=== PATIENT | female | born 1990 | race Caucasian/White ===

== ENCOUNTER 2024-10-08 07:39 | Day surgery (SDC) | payer OTHER, SELFPAY ==
[2024-10-08] VITALS (19 sets, daily range): BP systolic 95–147; BP diastolic 56–107; PULSE 71–87; RESP 11–32; TEMP 36.1–36.6; O2SAT 91–100; BMI 39.8
--- NOTE | 2024-10-08 08:46 | W.ANESPRE ---
General Info Date of Service Date Performed: 10/08/24 Height: 5 ft 5 in Weight: 108.5 kg Body Mass Index (BMI): 39.8 Surgical Procedure: Operation Date: 10/08/24 09:40 Proposed Procedure Side Surgeon p Tonsillectomy & Possible Adenoidectomy Ramu Nam MD Meds Allergies and Home Medications Allergies Allergy/AdvReac Type Severity Reaction Status Date / Time Penicillins Allergy Severe Anaphylaxis Verified 10/04/24 12:57 Home Medication ?Medication ?Instructions ?Recorded albuterol sulfate 90 mcg/actuation 2 puff inhalation Q6H PRN 05/23/24 aerosol inhaler benzonatate 100 mg capsule 100 mg PO TID PRN 05/23/24 eszopiclone 1 mg tablet (Lunesta) 1 mg PO QHS PRN 05/23/24 ferrous sulfate 324 mg (65 mg 324 mg PO DAILY 05/23/24 iron) tablet,delayed release fluticasone furoate 100 1 inh inhalation DAILY 05/23/24 mcg-vilanterol 25 mcg/dose inhalation powder (Breo Ellipta) folic acid 0.8 mg capsule 0.4 mg PO DAILY 05/23/24 montelukast 10 mg tablet 10 mg PO DAILY 05/23/24 trazodone 50 mg tablet 50 mg PO QHS PRN 05/23/24 biotin 2,500 mcg capsule 2,500 mcg PO DAILY 06/12/24 cetirizine 10 mg capsule (Wal-Zyr 10 mg PO DAILY PRN 06/12/24 (cetirizine)) spironolactone 100 mg tablet 100 mg PO BID 09/26/24 magnesium 200 mg tablet 400 mg PO DAILY 10/04/24 Current Visit Medications: Current Medications Generic Name Dose Route Start Last Admin Trade Name Freq PRN Reason Stop Dose Admin Ringer's Solution 1,000 mls @ 100 mls/hr 10/08/24 06:00 IV 10/08/24 23:59 INFUSION LEVAR Tranexamic Acid/Sodium Chloride 1,000 mg in 100 mls @ 600 mls/hr 10/08/24 06:00 IVPB 10/08/24 23:59 PREOP LEVAR Clindamycin Phosphate/Dextrose 900 mg in 50 mls @ 50 mls/hr 10/08/24 06:00 Cleocin In D5w IVPB 10/08/24 23:59 PREOP LEVAR IV Miscellaneous Supplies 1 each 10/08/24 06:00 Iv Access IV 10/08/24 23:59 DIRECTED LEVAR Sodium Chloride 0 ml 10/08/24 06:00 Normal Saline Flush 10 Ml Syr IV 10/08/24 23:59 PRN PRN Sodium Chloride 0 ml 10/08/24 06:00 Normal Saline 10 Ml Vial IJ 10/08/24 23:59 DIRECTED PRN Sterile Water 0 ml 10/08/24 06:00 Water,Injection,Sterile 10 Ml Vial IJ 10/08/24 23:59 DIRECTED PRN PFSH Active Problems Active Problems: Problem Status Onset Code Chronic tonsillitis Acute J35.01 Recurrent tonsillitis Acute J03.91 Medical History Medical History Asthma History of respiratory system disease Severe obesity Prediabetes Morbid obesity Migraines Iron deficiency anemia Inactive tuberculosis High total serum IgA Surgical History Surgical History History of Tobacco Smoking/Tobacco Use Status: Never Alcohol Alcohol Intake: current Alcohol intake frequency: holidays/special occasions only Substance Use Substance use: Never Substance use type: does not use Vital Signs and Lab Results Vital Signs Most Recent Vital Signs in EMR: Most Recent Vital Signs Temp Pulse Resp BP Pulse Ox 36.2 C L 83 16 147/107 H 99 10/08/24 08:26 10/08/24 08:26 10/08/24 08:26 10/08/24 08:26 10/08/24 08:26 Point of Care Results Point of Care Results: POC- Test(urine) Negative 10/08/24 08:33 Lab Results Blood Type / Crossmatch: No Data to Display Complete Blood Count: No Data to Display Complete Metabolic Panel: No Data to Display Liver Function Panel: No Data to Display Coagulation Panel: No Data to Display Cardiac Panel: No Data to Display Arterial Blood Gas: No Data to Display Venous Blood Gas: No Data to Display Pancreas Panel: No Data to Display Thyroid Panel: No Data to Display Infectious Disease: No Data to Display Blood Cultures: No Data to Display Toxicology Panel: No Data to Display Panel: No Data to Display Anesthesia Assessment and Plan Anesthesia History Personal History: No History of Anesthesia Complications Family History: No Family History of Anesthesia Complications Exercise Tolerance Exercise Tolerance: Metabolic Equivalents>4 Pertinent Negatives Pertinent Negatives: No Symptoms of GERD Cardiac & Pulmonary Exam Cardiac Exam: Normal S1/S2 Heart Sounds Pulmonary Exam: Clear Bilateral Breath Sounds Implantable Cardiac Device Does patient have a Pacemaker or an ICD?: No Airway Exam Known Difficult Airway: No Mallampati Class: 2 Mouth Opening: Normal (> 3cm) Thyromental Distance: Greater than 3 cm Neck Range of Motion: Full ROM Neck Circumference: Normal Teeth Condition: Normal Dentition ASA Classification ASA Score: ASA 2 Emergency Case?: No NPO Status NPO Status: NPO Clears >2 hours, Solids >8 hours Status Status: Negative HCG Anesthesia Plan Resuscitation Status: Full Code Anesthesia Technique: General Anesthesia Airway Planned: Endotracheal Tube Monitors Used: Standard Monitors and SedLine
[2024-10-08] MEDS: Lactated Ringers 1,000 ML 100 ML IV (08:47)
--- NOTE | 2024-10-08 09:27 | PDOC.DSDIS_ITS ---
Date of service: 10/08/24 Discharge Plan Disposition Patient Disposition: Home Condition: Good Discharge Details Reason For Visit: Tonsillectomy Attending Provider: Ramu Nam Primary Care Provider: Charlette Paul Home Meds and New Rx's Prescriptions: No Action Wal-Zyr (cetirizine) 10 mg capsule 10 mg PO DAILY PRN biotin 2,500 mcg capsule 2,500 mcg PO DAILY albuterol sulfate 90 mcg/actuation HFA aerosol inhaler 2 puff inhalation Q6H PRN benzonatate 100 mg capsule 100 mg PO TID PRN fluticasone furoate-vilanterol [Breo Ellipta] 100-25 mcg/dose blister with device 1 inh inhalation DAILY ferrous sulfate 324 mg (65 mg iron) tablet,delayed release (DR/EC) 324 mg PO DAILY folic acid 0.8 mg capsule 0.4 mg PO DAILY eszopiclone [Lunesta] 1 mg tablet 1 mg PO QHS PRN montelukast 10 mg tablet 10 mg PO DAILY trazodone 50 mg tablet 50 mg PO QHS PRN spironolactone 100 mg tablet 100 mg PO BID magnesium 200 mg tablet 400 mg PO DAILY Discharge Instructions Additional Instructions: My cell phone number is [phone]. Please call with any questions or concerns. If you feel it is an emergency, and you are unable to reach me, please call 911 or proceed to the emergency room. Stand Alone Forms: ENT- T&A InstrAmanda Nam Referrals: Ramu Nam MD [ [facility] STAFF PHYSICIAN] - (1 month) Discharge Orders Discharge Orders: Discharge Order (Routine); Ordered 10/08/24 Ordered By: Ramu Nam
--- NOTE | 2024-10-08 09:29 | W.PM.OP ---
Operative Note Operative Note PRE-OP DIAGNOSIS: Chronic tonsillitis POST-OP DIAGNOSIS: same PROCEDURE: Tonsillectomy SURGEON: Ramu Nam ANESTHESIA TYPE: General LMA/ETT Refer to Anesthesia Record ESTIMATED BLOOD LOSS: 50 PATHOLOGY: other (Tonsils) COMPLICATIONS: None Patient was transported to: PACU Patient's condition: stable Indications: Patient with chronic medically recalcitrant tonsillitis. Options were explained to the patient regarding further management. She elected to undergo the above procedure. Consent was filled and signed prior to surgery. All risks and benefits were discussed at length. Risks of narcotics including respiratory depression and dependence were discussed again. H&P was reviewed. There have been no changes. She still wish to proceed with tonsillectomy with possible adenoidectomy. Findings: Atrophic tonsils, no debris, 3+ tonsils, copious cryptic debris, palate intact to inspection and palpation. Procedure Description: After obtaining an adequate level of general endotracheal anesthesia the patient was positioned in supine position and prepped and draped in appropriate fashion. A Lokesh Willian mouthgag was carefully introduced into the oral cavity and opened to reveal the soft and hard palates which were examined revealing no evidence of an occult cleft palate. The adenoidal bed was examined revealing no significant residual adenoid. Posterior choana were widely patent bilaterally. Each tonsil was injected in a submucosal plane with 0.5% Marcaine with 1/100,000 epinephrine. A 12 blade was then used to incise mucus along the superior, anterior, and posterior edges of the tonsil. Distracting the tonsil medially and posteriorly a Donna elevator was used to disarticulate the tonsil from the superior tonsillar fossa and then a Bennett blade used to strip the tonsil free from the tonsillar fossa down to the inferior pole at which point in time a tonsillar snare was used to amputate the tonsil from the tonsillar fossa. Once been accomplished bilaterally, electrocautery suction tip catheter was used to afford hemostasis. This was set on 15 W coagulation. Once hemostasis been achieved bilaterally, the Lokesh Willian mouthgag was relaxed and reopened revealing no further bleeding. Valsalva failed to induce any further bleeding. Reopening the Cardiovis mouthgag failed to reveal any further bleeding and thus the Lokesh-Willian mouthgag was relaxed and removed and the patient was awakened and extubated by anesthesia and taken the recovery room in stable condition. I was present throughout the entire case. Date of Procedure: 10/08/24
[2024-10-08] MEDS: CLINDAMYCIN 900 MG/50 ML BAG 50 MG IVPB (09:31)
[2024-10-08] MEDS: TRANEXAMIC ACID/SOD. CHL. 1,000 MG/100 ML BAG 600 MG IVPB ×2 (09:43→11:57)
--- NOTE | 2024-10-08 09:48 | TONSIL_PTH ---
PATIENT: Lucy Melgar LOC: [facility] U#:[id number] AGE/SX: 34/F ROOM: RE10/08/[address]: Ramu Nam MD : 1990 BED: DIS: 10/08/2024 SPEC #: [id number] RECD: 10/08/24 12:59 STATUS: DELIO REQ #: [id number] LEI: 10/08/24 09:[address]: Ramu Nam DEPT: Surgical Specimen RECD BY: Jaye Brown ENTERED: 10/08/24 13:00 SP TYPE: TONSIL OTHR DR: EBONI Law Tissues: 1 - TONSIL AGE 17 & OVER 2 - TONSIL AGE 17 & OVER Procedures: GROSS AND MICRO LEVEL 3 Comments: [id number]
[2024-10-08] MEDS: Bupivacaine 0.5% Pres-Free W/EPI 10 ML VIAL (09:53)
[2024-10-08] MEDS: ACETAMINOPHEN 1,000 MG/100 ML BAG 400 MG IVPB (10:51)
--- NOTE | 2024-10-08 14:30 | W.ANESPOSTOP ---
Postoperative Evaluation Date, Time and Location Date Performed: 10/08/24 Time Performed: 14:41 Patient Location: Day Surgery Unit Vital Signs Most Recent Imported Vital Signs: Most Recent Vital Signs Temp Pulse Resp BP Pulse Ox 36.4 C L 80 18 130/86 98 10/08/24 12:01 10/08/24 12:01 10/08/24 12:01 10/08/24 12:01 10/08/24 12:01 Pain Score Most Recent Pain Score: Most Recent Pain Score Pain Level 1 10/08/24 12:01 Assessment Mental Status: Awake (Alert & Oriented to Patient Baseline) Airway and Respiratory Function: Patent airway with normal (patient baseline) respiratory exam Cardiovascular Function: Hemodynamically Stable Hydration Status: Adequately Hydrated Nausea & Vomiting: No Nausea or Vomiting Pain: Pain is tolerable per patient Peripheral Nerve Block: Patient did not receive a nerve block
== END 2024-10-08 14:51 | disposition home or self-care (01) ==
PROVIDERS: PCP Physician Assistant; Visit Provider Otolaryngology
PROC: (CPT 42826; principal; 2024-10-08 09:30)
DX: J35.01 Chronic tonsillitis (principal)
CPT/HCPCS: 42826; 81025; 88304; J0131; J0737; J1100; J1790; J2003; J2250; J2405; J2704; J3010